=== PATIENT | female | born 1995 | race Caucasian/White ===

== ENCOUNTER 2018-05-08 17:28 | Emergency (ER) | payer BC, OTHER ==
[2018-05-08 17:39] VITALS: O2SAT 100
--- NOTE | 2018-05-08 18:08 | C.PDOC ---
History Of Present Illness 22 yo female come in for evaluation of lower abdominal pain gradually developed since yesterday associated with some discomfit on urination. Pt reports, " today noted some pink colored urine". Otherwise, pt denies fever, chills, headache, dizziness, N/V/D, back pain, vaginal irritation or discharge. Ambulate to Ed for evaluation, not in any apparent distress. Time Seen by Provider: 05/08/18 17:46 Chief Complaint (Nursing): Abdominal Pain Onset/Duration Of Symptoms: Gradual Past Medical History Reviewed: Historical Data, Nursing Documentation, Vital Signs Vital Signs: Last Vital Signs Temp 98.2 F 05/08/18 17:33 Pulse 84 05/08/18 17:33 Resp 18 05/08/18 17:33 BP 126/81 05/08/18 17:33 Pulse Ox 100 05/08/18 18:08 - Medical History PMH: No Chronic Diseases Family History: States: Unknown Family Hx - Social History Hx Alcohol Use: No Hx Substance Use: No - Immunization History Hx Tetanus Toxoid Vaccination: No Hx Influenza Vaccination: No Hx Pneumococcal Vaccination: No Review Of Systems Except As Marked, All Systems Reviewed And Found Negative. Constitutional: Negative for: Fever, Chills Eyes: Negative for: Vision Change ENT: Negative for: Throat Pain, Throat Swelling Cardiovascular: Negative for: Chest Pain, Orthopnea Respiratory: Negative for: Cough, Shortness of Breath Gastrointestinal: Positive for: Abdominal Pain. Negative for: Nausea, Vomiting, Diarrhea Genitourinary: Positive for: Dysuria, Hematuria. Negative for: Frequency, Vaginal Discharge, Vaginal Bleeding Musculoskeletal: Negative for: Neck Pain, Back Pain Skin: Negative for: Rash Neurological: Negative for: Headache, Dizziness Physical Exam - Physical Exam Appears: Well, Non-toxic, No Acute Distress Skin: Normal Color, Warm, Dry, No Rash Eye(s): bilateral: PERRL Oral Mucosa: Moist Throat: No Erythema Neck: Supple Cardiovascular: Rhythm Regular Respiratory: No Decreased Breath Sounds, No Accessory Muscle Use, No Stridor, No Wheezing Gastrointestinal/Abdominal: Soft, Tenderness (mild suprapubic), No Distention, No Guarding, No Rebound Back: No CVA Tenderness Extremity: Normal ROM, No Deformity Neurological/Psych: Oriented x3, Normal Speech ED Course And Treatment - Laboratory Results Urine POC: Negative O2 Sat by Pulse Oximetry: 100 Progress Note: On re-evaluation, pt is afebrile, hemodynamicaly stable. Non- toxic. PulsEOx 100% RA. ENT: no acute findings. neck: Supple. Lungs: CTA B/L, BS equal B/L. CVS: (+)[id number], (-) murmur. Abd: benign, (-) localized tenderness, (-) guarding, (-) rebound. back: (-) CVA tenderness. UA review (+) WBC, RBC c/w UTI. Ucx- pending. Pt advised. ref. to F/u with PMD in 2-3 days for re-eval. return to ED if any worsening or new changes. Disposition Counseled Patient/Family Regarding: Studies Performed, Diagnosis, Need For Followup, Rx Given - Disposition Referrals: Lisandro Waite DO [Staff Provider] - Disposition: HOME/ ROUTINE Disposition Time: 18:41 Condition: STABLE Additional Instructions: Encourage fluids Cranberry supplement Follow up with PMD, [employer] in 2-3 days for re-evaluation. return to Ed if any worsening or new changes, Prescriptions: Nitrofurantoin Macrocrystals [Macrobid] 1 cap PO BID #14 cap Phenazopyridine [Phenazopyridine HCl] 200 mg PO Q12 #6 tab Instructions: Urinary Tract Infections in Adults Forms: [facility] (Romanian) - Clinical Impression Clinical Impression: UTI (urinary tract infection)
[2018-05-08 18:25] LABS: SQUAMOUS EPITHIAL 4 /hpf (0-5); URINE BACTERIA RARE (<OCC); URINE BILIRUBIN NEGATIVE (NEGATIVE); URINE BLOOD NEGATIVE (NEGATIVE); URINE CLARITY Hazy (Clear); URINE COLOR Yellow (YELLOW); URINE GLUCOSE (UA) NORMAL (Normal); URINE LEUKOCYTE ESTERASE 3+ Leu/uL (Negative); URINE PROTEIN NEGATIVE (NEGATIVE); URINE UROBILINOGEN NORMAL mg/dL (0.2-1.0)
[2018-05-08 18:49] VITALS: BP 110/71; PULSE 60; RESP 20; TEMP 98.7
== END 2018-05-08 18:53 | disposition home or self-care (01) ==
LOC: C.ER 17:28
DX: N39.0 Urinary tract infection, site not specified (principal)